=== PATIENT | male | born 1940 | race African-American/Black ===

== ENCOUNTER → 2020-06-27 | Outpatient (CLI) | payer MEDICARE ==
[2020-06-27 20:18] LABS: Non-African American GFR(CKD) 70.8 (60.0-200.0)
== END | disposition home or self-care (01) ==
LOC: LABWHC1 11:29
PROVIDERS: ATTEND Radiology Radiation Oncology
DX: C32.2 Malignant neoplasm of subglottis (principal); Z92.3 Personal history of irradiation
CPT/HCPCS: 36415; 82565; 84520

== ENCOUNTER → 2020-07-01 | Outpatient (CLI) | payer MEDICARE ==
--- NOTE | 2020-07-02 12:32 | CT ---
EXAMINATION TYPE: CT chest wo/w con DATE OF EXAM: 07/01/2020 COMPARISON: 02/29/2020 HISTORY: Malignant neoplasm of subglottis. CT DLP: 997.9 mGycm Automated exposure control for dose reduction was used. CONTRAST: CT scan of the chest is performed without and with IV Contrast, patient injected with 100 mL of Isovu e M300. FINDINGS: LUNGS: Multiple new pulmonary nodules are seen bilaterally totaling 30-40 on each side. The largest n odule within the left lower lobe measures 1.7 cm while the line largest nodule is within the right lo wer lobe measuring 1.4 cm. MEDIASTINUM: There are no greater than 1 cm hilar or mediastinal lymph nodes. No pericardial effusi on is seen. Thoracic aorta is of normal caliber. The heart is not enlarged. UPPER ABDOMEN: Hypoattenuating lesion within the left hepatic lobe adjacent to the falciform ligament measures 2.1 cm and is suspicious for metastatic disease. No additional hepatic lesions are seen wit h certainty although the entire liver is not imaged. Further evaluation is recommended with dedicated CT of the abdomen. Multicystic changes of the kidneys. OTHER: Postoperative changes are noted of the limited visualized portions of the neck IMPRESSION: 1. Multiple bilateral pulmonary nodules is a new finding. 2. Also noted is a suspicious lesion within the left hepatic lobe.
== END | disposition home or self-care (01) ==
LOC: RADCTMAIN 12:00
PROVIDERS: ATTEND Radiology Radiation Oncology
DX: R91.8 Other nonspecific abnormal finding of lung field (principal); C32.2 Malignant neoplasm of subglottis; Z92.3 Personal history of irradiation
CPT/HCPCS: 71270; Q9967

== ENCOUNTER 2020-08-02 08:25 | Day surgery (SDC) | payer MEDICARE ==
[2020-08-01 10:53] VITALS: BMI 26.9
[~2020-08-02 08:25] MED LIST: ACETAMINOPHEN TAB 500 MG TAB PO PRN; HEPARIN SODIUM,PORCINE 5,000 UNIT/ML 1 ML VIAL SQ PRN; Pre Op ABX Message 1 EACH MISC MISCELLANE ONE
--- NOTE | 2020-08-02 08:34 | P.GSHP ---
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 Patient is being seen by Dr. Giang from oncology. We are requested to place a Port-A-Cath for the diagnosis of head and neck cancer. Past Medical History Past Medical History: Cancer, COPD, Diabetes Mellitus, Hyperlipidemia, Hypertension, Prostate Disorder, Thyroid Disorder Additional Past Medical History / Comment(s): gout, cancer of the larynx, recent dx with shanel lung and liver cancer, recent throt infection-tx and resolved per spouse History of Any Multi-Drug Resistant Organisms: None Reported Additional Past Surgical History / Comment(s): complete laryngectomy, PEG tube insertion, Past Anesthesia/Blood Transfusion Reactions: No Reported Reaction Smoking Status: Former smoker - Past Family History Sister(s) Family Medical History: Cancer Additional Family Medical History / Comment(s): lung Brother(s) Family Medical History: Cancer Additional Family Medical History / Comment(s): pancreatic cancer Medications and Allergies Home Medications Medication Instructions Recorded Confirmed Type Allopurinol [Zyloprim] 100 mg PO QAM 08/01/20 08/01/20 History Atorvastatin [Lipitor] 20 mg PO HS 08/01/20 08/01/20 History HYDROcodone/APAP 10-325MG [[place] 1 tab PO Q6HR PRN 08/01/20 08/01/20 History 10-325] Levothyroxine Sodium [Synthroid] 150 mcg PO QAM 08/01/20 08/01/20 History Losartan/Hydrochlorothiazide 1 tab PO QAM 08/01/20 08/01/20 History [Hyzaar 100-25 Tablet] Naproxen 500 mg PO BID 08/01/20 08/01/20 History Tamsulosin [Flomax] 0.4 mg PO HS 08/01/20 08/01/20 History amLODIPine [Norvasc] 5 mg PO 1430 08/01/20 08/01/20 History metFORMIN HCL [Glucophage] 500 mg PO 1430 08/01/20 08/01/20 History Allergies Allergy/AdvReac Type Severity Reaction Status Date / Time No Known Allergies Allergy Verified 08/01/20 10:37 Surgical - Exam Physical exam: General: Well-developed, well-nourished HEENT: Normocephalic, sclerae nonicteric Abdomen: Nontender, nondistended Extremities: No edema Neuro: Alert and oriented Assessment and Plan (1) Head and neck cancer Narrative/Plan: Will proceed with Port-A-Cath at this time. Risks of bleeding, infection, DVT, pneumothorax, catheter malfunction, anesthesia related complications were discussed. The patient understands and wishes to proceed. Current Visit: Yes Status: Acute Code(s): C76.0 - MALIGNANT NEOPLASM OF HEAD, FACE AND NECK SNOMED Code(s): 760245943
[2020-08-02 08:55] VITALS: RESP 16
[2020-08-02] MEDS ORDERED: LACTATED RINGERS 1,000 ML IV ONE (09:00)
[2020-08-02] MEDS ORDERED: LIDOCAINE 1% (10MG/ML) FOR IV START INTRADERMA ONE (09:00)
[2020-08-02] MEDS ORDERED: ONDANSETRON 4 MG/2 ML VIAL ONE (09:01)
[2020-08-02] MEDS ORDERED: DEXAMETHASONE SOD PHOSPHATE 4 MG/ML 1 ML VIAL IV ONE (09:10)
[2020-08-02 09:18] LABS: Glucose,Whole Blood 145 mg/dL (75-99)
[2020-08-02] MEDS ORDERED: MIDAZOLAM 2 MG/2 ML VIAL ONE (09:47)
[2020-08-02] MEDS ORDERED: PHENYLEPHRINE-0.9% NACL SYG 1,000 MCG/10 ML SYRINGE ONE (09:47)
[2020-08-02] MEDS ORDERED: ePHEDrine SULFATE/0.9% NACL/PF 50 MG/5 ML SYRINGE IV ONE (09:47)
[2020-08-02] MEDS ORDERED: fentaNYL (PF) 50 MCG/ML 2 ML AMP ONE (09:47)
[2020-08-02] MEDS ORDERED: PROPOFOL 10 MG/ML 20 ML VIAL IV ONE (09:47)
[2020-08-02] MEDS ORDERED: LIDOCAINE 1% INJ 10MG/ML (20 ML MDV) ONE (09:47)
[2020-08-02] MEDS ORDERED: SODIUM CHLORIDE 0.9% 100 ML with ceFAZolin 2,000 MG IV ONE ×2 (10:21)
[2020-08-02] MEDS ORDERED: LIDOCAINE 1% INJ 10MG/ML (20 ML MDV) SQ ONE ×2 (10:22)
[2020-08-02] MEDS ORDERED: HYDROcodone/APAP 5-325MG 1 EACH TAB PO PRN (10:51)
[2020-08-02] MEDS ORDERED: NALOXONE 0.4 MG/ML 1 ML VIAL IV PRN (10:51)
--- NOTE | 2020-08-02 10:52 | P.OP ---
Date of Procedure: 08/02/20 Procedure(s) Performed: PREOPERATIVE DIAGNOSIS: Head and neck cancer POSTOPERATIVE DIAGNOSIS: Same PROCEDURE: Port-A-Cath placement with fluoroscopic and ultrasound guidance SURGEON: Crow EBL: Minimal ANESTHESIA: Sedation COMPLICATIONS: None OPERATIVE PROCEDURE: Patient was brought and placed on the operative table in the supine position. The patient was placed under general anesthesia that time. The chest and neck were prepped and draped in usual sterile fashion. The ultrasound probe was used to identify the location of the right internal jugular vein. The skin was localized with lidocaine. The Seldinger needle was advanced into the IJ under ultrasound guidance. The wire was advanced through the needle under fluoroscopic guidance into the superior vena cava. A port pocket was created in the right infraclavicular location. The catheter was tunneled from the wire entrance site to the port pocket. The port was then connected to the catheter. The dilator introducer was threaded over the guidewire. The guidewire and dilator were then removed. The catheter was advanced through the introducer and introducer was then removed. The tip was seen to be in the right atrial junction via fluoroscopy. A picture of the radiograph showing the tip at the radial digital junction was taken. Port was flushed with both saline and a Hep-Lock solution. There was good flow both in and out of the port. The port was sutured in underlying tissues using 3-0 silk sutures. The subcutaneous tissues were reapproximated using 3-0 Vicryl sutures and the skin at both locations using 4-0 Monocryl sutures. Skin glue and sterile dressings then applied. DISPOSITION: Stable to recovery room
--- NOTE | 2020-08-02 11:03 | FL ---
Fluoroscopy INDICATION: Pain FINDINGS: Fluoroscopy time: 25 seconds. Images obtained: 1. IMPRESSIONS: 1. Documentation of fluoroscopy.
[2020-08-02 11:09] VITALS: TEMP 97.4
--- NOTE | 2020-08-02 11:34 | XR ---
EXAMINATION TYPE: XR chest 1V confirm line [facility] DATE OF EXAM: 08/02/2020 COMPARISON: 10/17/2013 INDICATION: Line placement TECHNIQUE: Single frontal view of the chest is obtained. FINDINGS: The heart size is normal. The pulmonary vasculature is normal. Tiny nodules at the right lung base measuring 0.6 cm. Additional nodularities left perihilar region. There is placement of a right central venous catheter with the tip lying likely in distal superior ve na cava region. No pneumothorax is evident. Surgical clips are in the left neck. IMPRESSION: 1. Multiple bilateral small nodules 2. No pneumothorax post line placement. Tip in the region of the distal superior vena cava.
[2020-08-02 12:04] VITALS: BP 130/72; PULSE 84
== END 2020-08-02 12:22 | disposition home or self-care (01) ==
LOC: OR 08:25
PROVIDERS: ATTEND Surgery
DX: C32.9 Malignant neoplasm of larynx, unspecified (principal); C34.92 Malignant neoplasm of unspecified part of left bronchus or lung; C34.91 Malignant neoplasm of unspecified part of right bronchus or lung; C22.8 Malignant neoplasm of liver, primary, unspecified as to type; J44.9 Chronic obstructive pulmonary disease, unspecified; E11.9 Type 2 diabetes mellitus without complications; E78.5 Hyperlipidemia, unspecified; I10 Essential (primary) hypertension; N42.9 Disorder of prostate, unspecified; E07.9 Disorder of thyroid, unspecified; M10.9 Gout, unspecified; Z90.02 Acquired absence of larynx; Z93.1 Gastrostomy status; Z93.0 Tracheostomy status; Z87.891 Personal history of nicotine dependence; Z80.1 Family history of malignant neoplasm of trachea, bronchus and lung; Z80.0 Family history of malignant neoplasm of digestive organs; Z79.84 Long term (current) use of oral hypoglycemic drugs; Z79.1 Long term (current) use of non-steroidal anti-inflammatories (NSAID); Z79.890 Hormone replacement therapy; Z79.891 Long term (current) use of opiate analgesic; Z79.899 Other long term (current) drug therapy
CPT/HCPCS: 77001; 36561; 76937; C1788; J2250; J1644; J1100; J2405; J0690; J2001; J3010; J1642; J2370; J2704

== ENCOUNTER → 2020-10-10 | Outpatient (CLI) | payer MEDICARE ==
--- NOTE | 2020-10-10 22:24 | CT ---
EXAMINATION TYPE: CT ChestAbdPelvis w con DATE OF EXAM: 10/10/2020 COMPARISON: Chest CT scan 07/01/2020. Abdomen CT scan 11/23/2014. HISTORY: Observe for mets, hx of head and neck cancer. CT DLP: 1392.4 mGycm Automated exposure control for dose reduction was used. CONTRAST: Performed with IV Contrast, patient injected with 80ml mL of Isovue 370. Images were obtained from the thoracic inlet to the floor the pelvis with IV contrast. There is some bullous pulmonary emphysema. There are multiple surgical clips at the base of the neck. There is fistula tubing between the trachea and the upper thoracic esophagus. There is extensive brittany brianna at the base of the neck. I see no mediastinal adenopathy. Thoracic aorta is intact. There is no aneurysm or dissection. I see no filling defects in the pulmonary arteries. There is no evidence of a pulmonary mass. There is no pleural effusion. There is no pneumothorax. Heart size is normal. There is no pericardial effusion. Liver is intact. The bile ducts are not dilated. Gallbladder is intact. Spleen is intact. Stomach is intact. There is gastrostomy tube noted in good position. There is no evidence of pancreatic mass. Th ere are numerous bilateral large renal cortical cysts that measure up to 8.2 cm. There is no hydronep hrosis. There is no retroperitoneal adenopathy. Abdominal aorta is atheromatous. There are multiple s igmoid diverticula. There is no diverticulitis. Bladder distends smoothly. Prostate measures 5 cm. Th ere is no inguinal hernia. There is no free fluid in the pelvis. There is normal oral contrast opacification of the small bowel. There is no sign of a bowel obstructi on. Appendix is posterior and appears normal. There is no mesenteric edema. There is no ascites or fr ee air. I see no sign of a bowel obstruction. Thoracic and lumbar vertebra have normal alignment. The re is no compression fracture. The sternum is intact. The bony pelvis is intact. Hip joints are intac t. There is vacuum disc at L5-S1. There is no evidence of rib fracture. IMPRESSION: Pulmonary emphysema. Extensive neck surgery. There is tracheostomy fistula tubing noted which is a ch enoch compared to old exam. There is apparent complete clearing of the extensive pulmonary nodules compared to 07/01/2020 that is suggestive of favorable treatment response. Numerous renal cortical cysts. Unchanged. No evidence of metastatic disease in the abdomen pelvis. Colonic diverticulosis without diverticulitis unchanged.
== END | disposition home or self-care (01) ==
LOC: RADCTMAIN 14:41
PROVIDERS: ATTEND Internal Medicine Hematology & Oncology
DX: C76.0 Malignant neoplasm of head, face and neck (principal); J43.9 Emphysema, unspecified; N28.1 Cyst of kidney, acquired; K57.30 Diverticulosis of large intestine without perforation or abscess without bleeding
CPT/HCPCS: 82565; 84520; 71260; 74177; 36415; Q9967

== ENCOUNTER 2020-10-30 10:48 | Emergency (ER) | payer MEDICARE ==
[2020-10-30 10:53] VITALS: PULSE 94; RESP 16; TEMP 98
[2020-10-30 10:59] VITALS: BP 140/75
--- NOTE | 2020-10-30 12:12 | ED ---
General Adult HPI - General Chief complaint: Recheck/Abnormal Lab/Rx Stated complaint: Feeding tube issues Time Seen by Provider: 10/30/20 11:07 Source: patient Mode of arrival: ambulatory Limitations: no limitations - History of Present Illness Initial comments: 80-year-old male presents to the emergency room for a chief complaint of PEG tube malfunction. Patient has had a PEG tube since February because of head and neck cancer. Patient reports that today they were not able to put anything throat. Patient reports that the usually use a syringe without a plunger and allow gravity to pull the Glucerna through however it did not work today.Patient has no other complaints at this time including shortness of breath, chest pain, abdominal pain, nausea or vomiting, headache, or visual changes. - Related Data Home Medications Medication Instructions Recorded Confirmed Allopurinol [Zyloprim] 100 mg PO QAM 08/01/20 08/01/20 Atorvastatin [Lipitor] 20 mg PO HS 08/01/20 08/01/20 HYDROcodone/APAP 10-325MG [[place] 1 tab PO Q6HR PRN 08/01/20 08/01/20 10-325] Levothyroxine Sodium [Synthroid] 150 mcg PO QAM 08/01/20 08/01/20 Losartan/Hydrochlorothiazide 1 tab PO QAM 08/01/20 08/01/20 [Hyzaar 100-25 Tablet] Naproxen 500 mg PO BID 08/01/20 08/01/20 Tamsulosin [Flomax] 0.4 mg PO HS 08/01/20 08/01/20 amLODIPine [Norvasc] 5 mg PO 1430 08/01/20 08/01/20 metFORMIN HCL [Glucophage] 500 mg PO 1430 08/01/20 08/01/20 Allergies Allergy/AdvReac Type Severity Reaction Status Date / Time No Known Allergies Allergy Verified 10/30/20 10:49 Review of Systems ROS Statement: Those systems with pertinent positive or pertinent negative responses have been documented in the HPI. ROS Other: All systems not noted in ROS Statement are negative. Past Medical History Past Medical History: Cancer, COPD, Diabetes Mellitus, Hyperlipidemia, Hypertension, Prostate Disorder, Thyroid Disorder Additional Past Medical History / Comment(s): gout, cancer of the larynx, recent dx with shanel lung and liver cancer, recent throt infection-tx and resolved per spouse History of Any Multi-Drug Resistant Organisms: None Reported Additional Past Surgical History / Comment(s): complete laryngectomy, PEG tube insertion, Past Anesthesia/Blood Transfusion Reactions: No Reported Reaction Past Psychological History: No Psychological Hx Reported Smoking Status: Former smoker Past Alcohol Use History: None Reported Past Drug Use History: None Reported - Past Family History Sister(s) Family Medical History: Cancer Additional Family Medical History / Comment(s): lung Brother(s) Family Medical History: Cancer Additional Family Medical History / Comment(s): pancreatic cancer General Exam Limitations: no limitations General appearance: alert, in no apparent distress Head exam: Present: atraumatic, normocephalic, normal inspection Eye exam: Present: normal appearance ENT exam: Present: normal exam, mucous membranes moist Neck exam: Present: normal inspection, full ROM. Absent: tenderness, meningismus, lymphadenopathy Respiratory exam: Present: normal lung sounds bilaterally. Absent: respiratory distress, wheezes, rales, rhonchi, stridor Cardiovascular Exam: Present: regular rate, normal rhythm, normal heart sounds. Absent: systolic murmur, diastolic murmur, rubs, gallop, clicks GI/Abdominal exam: Present: soft, normal bowel sounds, other (PEG tube in place). Absent: distended, tenderness, guarding, rebound, rigid Neurological exam: Present: alert Course Vital Signs 10/30/20 10:49 Temperature 98.0 F Pulse Rate 94 Respiratory 16 Rate Blood Pressure 140/75 O2 Sat by Pulse 99 Oximetry Medical Decision Making - Medical Decision Making The PEG tube was infused with diet Pepsi and it did flush easily. As tube is now working they prefer discharge rather than replacement. He will follow up with the surgeon. If tube was stops working again I did discuss how they can try to flush this was Pepsi and if it does not work to return to the emergency room and we will try to replace it. Disposition Clinical Impression: PEG tube malfunction Disposition: HOME SELF-CARE Condition: Good Instructions (If sedation given, give patient instructions): How to Use and Care for Your PEG Tube (ED) Additional Instructions: Please follow-up with your surgeon. If PEG tube stops working again and he cannot get anything through, return to the emergency room and we can try to replace it. If patient has any other worsening symptoms return to the emergency room. Otherwise call the surgeon to follow-up. Is patient prescribed a controlled substance at d/c from ED?: No Referrals: Jasmeet Willis MD [Primary Care Provider] - 1-2 days Time of Disposition: 12:11
== END 2020-10-30 12:20 | disposition home or self-care (01) ==
LOC: EC 10:48
DX: K94.23 Gastrostomy malfunction (principal); J44.9 Chronic obstructive pulmonary disease, unspecified; E11.9 Type 2 diabetes mellitus without complications; E78.5 Hyperlipidemia, unspecified; I10 Essential (primary) hypertension; Z87.891 Personal history of nicotine dependence; E07.9 Disorder of thyroid, unspecified; Z79.890 Hormone replacement therapy

== ENCOUNTER → 2021-01-20 | Outpatient (CLI) | payer MEDICARE ==
--- NOTE | 2021-01-20 15:19 | CT ---
EXAMINATION TYPE: CT ChestAbdPelvis w con DATE OF EXAM: 01/20/2021 COMPARISON: 10/10/2020 HISTORY: f/u head/neck ca CT DLP: 1429.3 mGycm CONTRAST: CT scan of the chest, abdomen and pelvis is performed with Oral Contrast and with IV Contrast, patien t injected with 100 mL of Isovue 300. CT Chest: LUNGS: Moderate bullous emphysema noted. The lungs are clear and free of infiltrate or atelectasis. A 4 mm groundglass nodule left mid lung zone image 34 is stable. No new nodules are visible. No pleura l effusion or CT evidence of interstitial lung disease. MEDIASTINUM: Fistula tubing again noted between the trachea and upper thoracic esophagus. Since a po stoperative change at the base of the neck is redemonstrated. Thoracic aorta is of normal caliber. T he heart is not enlarged. No evidence for mediastinal mass or adenopathy. HILAR STRUCTURES: No evidence for mass. No hilar adenopathy is appreciated. OTHER: No significant abnormality. CONTRAST CT ABDOMEN AND PELVIS FINDINGS: LIVER/GB: No calcified gallstones. No space occupying hepatic lesion. Biliary tree is of normal ca liber. PANCREAS: No inflammation. No distinct mass. SPLEEN: No splenic enlargement. No lesion seen. ADRENALS: No nodule. No thickening. KIDNEYS/BLADDER: No hydronephrosis. No nephrolithiasis. Redemonstrated are numerous bilateral renal cortical cysts. BOWEL: Normal appendix. Normal bowel caliber. No inflammation. GENITAL ORGANS: No gross abnormality. LYMPH NODES: No greater than 1cm abdominal or pelvic lymph nodes are appreciated. AORTA: No significant abnormality. OSSEOUS STRUCTURES: No significant abnormality is seen. OTHER: No significant additional abnormality is seen. IMPRESSION: 1. Stable groundglass nodular density left midlung zone. 2. Stable pulmonary fibrosis. 3. Fistula device between the trachea and the upper thoracic esophagus.
== END | disposition home or self-care (01) ==
LOC: RADCTMAIN 12:30
PROVIDERS: ATTEND Internal Medicine Hematology & Oncology
DX: Z03.89 Encounter for observation for other suspected diseases and conditions ruled out (principal); C76.0 Malignant neoplasm of head, face and neck; J84.10 Pulmonary fibrosis, unspecified
CPT/HCPCS: 82565; 84520; 71260; 74177; 36415; Q9967

== ENCOUNTER → 2021-05-13 | Outpatient (CLI) | payer MEDICARE ==
--- NOTE | 2021-05-14 16:57 | CT ---
EXAMINATION TYPE: CT ChestAbdPelvis w con DATE OF EXAM: 05/13/2021 INDICATION: Head and neck cancer COMPARISON: 01/20/2021 CT DLP: 2164 mGycm CONTRAST: Performed with Oral Contrast and with IV Contrast, patient injected with 100 ml mL of Isovue 300. TECHNIQUE: Axial images at 5 mm thick sections. Reconstructed images in the coronal plane. Delayed images through the kidneys. FINDINGS: CT CHEST: Portion of the thyroid visualized is normal. No suspicious lung nodules or focal infiltrates are present. No enlarged mediastinal or hilar adenopathy is evident. The ascending aorta diameter at the level of the main pulmonary artery is 3.5 cm. The main pulmonary artery diameter at the bifurcation is 2.5 cm. Coronary artery calcification is present. Small hiatal hernia is present. CT ABDOMEN: Liver: Liver density is stable over the interval. Small hypodensities in the medial right lobe. Spleen: Normal Pancreas: Normal Adrenal glands: The adrenal glands are normal. Gallbladder: Normal Kidneys: No masses are evident. No hydronephrosis is present. Multiple large cysts are present. The largest on the right which may contain some wall calcification measures 6.7 x 8.5. Largest on the ri ght measures 4.6 cm in diameter. Multiple additional smaller renal cysts are present. Delayed images were obtained through the kidneys, which remain unremarkable. Aorta: Vascular calcification is within the aorta. Mild fusiform prominence of the distal abdominal aorta with an AP diameter of 2.7 cm. Inferior vena cava: Normal. CT PELVIS: Loops of bowel within the abdomen and pelvis are normal. Fecal debris is within the colon. There a re loops of bowel which are incompletely distended or lack oral contrast limiting their evaluation. Appendix: Not identified. No suspicious inflammatory changes are evident. Urinary bladder: Normal. Genitourinary structures: Prostate is very prominent. Osseous structures: No suspicious lytic or sclerotic lesions. IMPRESSIONS: 1. No suspicious changes to suggest metastatic disease. 2. Polycystic kidney disease. 3. Small hiatal hernia.
== END | disposition home or self-care (01) ==
LOC: RADPROMAIN 10:43
PROVIDERS: ATTEND Internal Medicine Hematology & Oncology
DX: C76.0 Malignant neoplasm of head, face and neck (principal); Q61.3 Polycystic kidney, unspecified; K44.9 Diaphragmatic hernia without obstruction or gangrene
CPT/HCPCS: 82565; 84520; 71260; 74177; J1642; Q9967

== ENCOUNTER → 2021-08-01 | Outpatient (CLI) | payer MEDICARE ==
--- NOTE | 2021-08-01 15:19 | PE ---
Nuclear medicine PET/CT HISTORY: Head and neck cancer, subsequent Patient received 7.9 mCi F-18 FDG intravenously and delayed scanning was performed from the skull bas e to the mid thighs. A localization and attenuation correction CT scan was performed. Small field-of- view imaging was performed over the head and neck. Correlation to prior CT chest abdomen pelvis 05/13/2021, prior nuclear medicine PET/CT 05/06/2020 Head and neck: The previous areas of abnormal uptake are no longer seen, postop changes are present. Some muscular uptake is present which is likely physiologic. No supraclavicular or cervical adenopath y. Some mild inflammatory change present in the right maxillary sinus. Patient is post laryngectomy. There is a port coursing via a right jugular approach. Uptake along the region of the pharyngeal muco uri space or tonsillar pillar region on the left does show uptake, SUV is 4.9, increased on the left as compared to the right, questionable clinical significance. CHEST: There is no mediastinal, axillary, or hilar adenopathy. Coronary artery calcifications are pre sent. There is no pleural or pericardial effusion. No evident lung mass. Emphysematous changes are pr esent. No suspicious uptake. Tracheostomy changes present. ABDOMEN: There is no evident liver mass, no retroperitoneal adenopathy or adrenal mass. Extensive cys tic change is present within the kidneys. There is no ascites. No suspicious uptake. Osseous structures show no suspicious uptake. Uptake within the right shoulder may be due to degenera tive change. Suspect postop changes are present in the proximal left lower extremity. Degenerative di sc change and facet arthropathy change noted in the lower lumbar spine. IMPRESSION: Uptake within the oropharynx as described is indeterminate. Postop changes.
== END | disposition home or self-care (01) ==
LOC: RADPETMAIN 07:17
PROVIDERS: ATTEND Internal Medicine Hematology & Oncology
DX: C76.0 Malignant neoplasm of head, face and neck (principal)
CPT/HCPCS: 78815; A9552

== ENCOUNTER → 2021-11-04 | Outpatient (CLI) | payer MEDICARE ==
--- NOTE | 2021-11-04 14:05 | CT ---
EXAMINATION TYPE: CT ChestAbdPelvis w con DATE OF EXAM: 11/04/2021 COMPARISON: Most recent PET CT August 01, 2021 and older studies HISTORY: f/u neck cancer CT DLP: 1670 mGycm. Automated Exposure Control for Dose Reduction was Utilized. CONTRAST: CT scan of the thorax, abdomen and pelvis is performed with oral and with IV Contrast, patient inject ed with 80cc mL of Isovue 300. FINDINGS: LUNGS: Mild/moderate underlying emphysematous change with mild linear scarring throughout the lower l ungs. No suspicious greater than 5 mm nodules or masses. No pleural effusion or pneumothorax is seen bilaterally. MEDIASTINUM: There are no greater than 1 cm hilar or mediastinal lymph nodes. No cardiomegaly or pe ricardial effusion is seen. Coronary artery calcification is redemonstrated. OTHER: Treatment change submandibular and supraclavicular region with surgical clips is partially hayden ged. There is right internal jugular Mediport catheter redemonstrated.. LIVER/GB: No significant abnormality is appreciated. PANCREAS: No significant abnormality is seen. SPLEEN: No significant abnormality is seen. ADRENALS: No significant abnormality is seen. KIDNEYS: Multiple thin-walled cysts of varying size and shape scattered throughout both kidneys redem onstrated. Symmetric cortical medullary uptake and excretion without hydronephrosis seen bilaterally. BOWEL: Oral contrast does not reach colonic level making evaluation of distal bowel slightly suboptim al. No suspicious small or large bowel dilatation. Diverticula in the left and sigmoid colon without CT evidence for acute diverticulitis. GENITAL ORGANS: Enlarged heterogeneous prostate consistent with BPH. LYMPH NODES: No greater than 1cm abdominal or pelvic lymph nodes are appreciated. OSSEOUS STRUCTURES: Moderate disc space narrowing and vacuum disc phenomenon lumbosacral junction. St able nonspecific lucent lesion left T5 level axial image 20. This was ametabolic on original PET/CT. Facet arthropathy lower lumbar levels. OTHER: [id number] peripheral plaque of the aorta extends into branch vessels. IMPRESSION: No suspicious new mass or adenopathy to suggest active neoplastic recurrence.
== END | disposition home or self-care (01) ==
LOC: RADCTMAIN 10:53
PROVIDERS: ATTEND Internal Medicine Hematology & Oncology
DX: Z03.89 Encounter for observation for other suspected diseases and conditions ruled out (principal); C76.0 Malignant neoplasm of head, face and neck
CPT/HCPCS: 82565; 84520; 71260; 74177; 36415; Q9967

== ENCOUNTER 2021-12-10 08:46 | Emergency (ER) | payer MEDICARE ==
[2021-12-10] MEDS ORDERED: SODIUM CHLORIDE 0.9% 1,000 ML IV STA (08:51)
[2021-12-10 09:01] VITALS: RESP 18; TEMP 98.4
[2021-12-10 09:03] LABS: Glucose,Whole Blood 121 mg/dL (70-110)
--- NOTE | 2021-12-10 09:30 | XR ---
EXAMINATION TYPE: XR chest 2V DATE OF EXAM: 12/10/2021 COMPARISON: Chest x-ray August 02, 2020. Most recent CT November 04, 2021 HISTORY: Syncope and weakness. History of neck cancer. TECHNIQUE: Frontal and lateral views of the chest are obtained. FINDINGS: There is background chronic emphysematous change without suspicious focal air space opacit y, pleural effusion, or pneumothorax seen. Stable right internal jugular Mediport catheter. Surgical clips bilateral neck redemonstrated. The cardiac silhouette size is stable and within normal limits. The osseous structures are intact. IMPRESSION: Chronic emphysematous change without acute pulmonary process.
[2021-12-10 09:31] LABS: Basophils % (A) 1 %; Eosinophils # (A) 0.4 k/uL (0-0.7); Eosinophils % (A) 6 %; HCT 37.7 % (39.0-53.0); HGB 12.8 gm/dL (13.0-17.5); Lymphocytes # (A) 1.6 k/uL (1.0-4.8); Lymphocytes % (A) 21 %; MCH 30.6 pg (25.0-35.0); MCV 90.1 fL (80.0-100.0); Mean Platelet Volume 7.2; Monocytes # (A) 0.8 k/uL (0-1.0); Monocytes % (A) 10 %; Neutrophils # (A) 4.5 k/uL (1.3-7.7); Neutrophils % (A) 59 %; Platelet Count 203 k/uL (150-450); RBC 4.18 m/uL (4.30-5.90); RDW 12.8 % (11.5-15.5); WBC 7.5 k/uL (3.8-10.6)
--- NOTE | 2021-12-10 09:40 | CT ---
EXAMINATION TYPE: CT brain wo con CT DLP: 1217.4 mGycm, Automated exposure control for dose reduction was used. DATE OF EXAM: 12/10/2021 9:24 AM COMPARISON: 08/01/2021 PET. CLINICAL INDICATION:Male, 81 years old with history of syncope. TECHNIQUE: Brain: Multiple axial CT images of the brain were obtained without IV contrast. FINDINGS: Brain: Extra-axial spaces: No abnormal extra-axial fluid collections. Ventricular system: Dilatation in proportion to cerebral atrophy. Cerebral parenchyma: Cerebral atrophy. No acute intraparenchymal hemorrhage or mass effect. The williamson -white junction is well differentiated. Scattered hypoattenuating areas are seen within the white mat ter. Cerebellum: Unremarkable. Mass effect: No evidence of midline shift. Intracranial vasculature: Atherosclerotic calcifications of the intracranial vessels. Soft tissues: Normal. Calvarium/osseous structures: No depressed skull fracture. Paranasal sinuses and mastoid air cells: Mild scattered paranasal sinus disease. Visualized orbits: Left aphakia IMPRESSION: 1. No acute intracranial process. 2. Nonspecific white matter changes, likely secondary to chronic small vessel ischemic disease.
[2021-12-10 09:42] LABS: INR 1.1 (<1.2); Partial Thromboplastin Time 24.2 sec (22.0-30.0); Prothrombin Time 11.3 sec (9.0-12.0)
[2021-12-10 10:00] LABS: Albumin 3.8 g/dL (3.5-5.0); Calcium 8.2 mg/dL (8.4-10.2); Magnesium 1.4 mg/dL (1.6-2.3); Potassium 3.2 mmol/L (3.5-5.1); Total Bilirubin 0.6 mg/dL (0.2-1.3); Total Protein 7.6 g/dL (6.3-8.2)
[2021-12-10] MEDS ORDERED: MAGNESIUM SULFATE-D5W PMX 1 GM in DEXTROSE/WATER 1 100ML.BAG IVPB ONE (10:21)
[2021-12-10] MEDS ORDERED: POTASSIUM CHLORIDE ER 20 MEQ TAB.ER PO STA (10:21)
--- NOTE | 2021-12-10 11:31 | ED ---
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 Patient states that he was receiving blood work at his doctor's office, and his is notified that he became somewhat unresponsive. Patient was staring off into the corner. States he felt extremely weak care people talking to him. Please see may have passed out for a second. Denies falling or hitting his head or injuring himself. Denies any blood thinners. Denies any chest pain, shortness breath, abdominal pain, nausea, vomiting. His no urinary complaints. States that over the last day he has felt generally weak with no focal weakness. No other symptoms. No other acute complaints at this time. He was brought here for further evaluation. They did not actually poke him attempt to draw blood. He was fasting to obtain a fasting glucose level and had not eaten since yesterday.Currently has no acute complaints. - Related Data Home Medications Medication Instructions Recorded Confirmed Atorvastatin [Lipitor] 20 mg PO HS 08/01/20 12/10/21 HYDROcodone/APAP 10-325MG [[place] 1 tab PO Q6HR 08/01/20 12/10/21 10-325] Levothyroxine Sodium [Synthroid] 150 mcg PO QAM 08/01/20 12/10/21 Losartan/Hydrochlorothiazide 1 tab PO QAM 08/01/20 12/10/21 [Hyzaar 100-25 Tablet] Naproxen 500 mg PO BID 08/01/20 12/10/21 Tamsulosin [Flomax] 0.4 mg PO HS 08/01/20 12/10/21 allopurinoL [Zyloprim] 100 mg PO QAM 08/01/20 12/10/21 amLODIPine [Norvasc] 5 mg PO DAILY 08/01/20 12/10/21 metFORMIN HCL [Glucophage] 500 mg PO 1430 08/01/20 12/10/21 Calcium Carbonate [Tums] 500 mg PO DAILY 12/10/21 12/10/21 Clotrimazole Cream [Lotrimin Cream] 1 applic TOPICAL BID 12/10/21 12/10/21 Glucerna Shake 1.5 - 5 can PO DAILY 12/10/21 12/10/21 Latanoprost Ophth [Xalatan 0.005%] 1 drop BOTH EYES HS 12/10/21 12/10/21 Loratadine [Claritin] 10 mg PO DAILY 12/10/21 12/10/21 Omeprazole [PriLOSEC] 20 mg PO DAILY 12/10/21 12/10/21 Prostate Pq 1 tab PO DAILY 12/10/21 12/10/21 Allergies Allergy/AdvReac Type Severity Reaction Status Date / Time No Known Allergies Allergy Verified 10/30/20 10:49 Review of Systems ROS Statement: Those systems with pertinent positive or pertinent negative responses have been documented in the HPI. Review of Systems: CONST: Denies fever EYES: Denies blurry vision ENT: Denies nasal congestion C/V: Denies Chest pain RESP: Denies shortness of breath GI: Denies abdominal pain : Denies dysuria SKIN: Denies rash. MSK: Denies joint pain. NEURO: Denies headache ROS Other: All systems not noted in ROS Statement are negative. Past Medical History Past Medical History: Cancer, COPD, Diabetes Mellitus, Hyperlipidemia, Hypertension, Prostate Disorder, Thyroid Disorder Additional Past Medical History / Comment(s): gout, cancer of the larynx, recent dx with shanel lung and liver cancer, recent throt infection-tx and resolved per spouse History of Any Multi-Drug Resistant Organisms: None Reported Additional Past Surgical History / Comment(s): complete laryngectomy, PEG tube insertion, Trach, port Past Anesthesia/Blood Transfusion Reactions: No Reported Reaction Past Psychological History: No Psychological Hx Reported Smoking Status: Former smoker Past Alcohol Use History: None Reported Past Drug Use History: None Reported - Past Family History Sister(s) Family Medical History: Cancer Additional Family Medical History / Comment(s): lung Brother(s) Family Medical History: Cancer Additional Family Medical History / Comment(s): pancreatic cancer General Exam - General Exam Comments Initial Comments: General: Appears in no acute distress. HEAD: Normal with no signs of head trauma. EYES: PERRLA, EOMI, conjunctiva normal, no discharge. ENT: Hearing grossly intact. She States that is within normal limits. No signs of infection. RESPIRATORY: Clear breath sounds bilaterally. No wheezes, rales, or rhonchi. C/V: Regular rate and rhythm. S1 and S2 auscultated, no edema, peripheral pulses 2+ and intact throughout ABD: Abd is soft, nontender, nondistended EXT: Normal range of motion, no obvious deformity SKIN: No rashes or lesions observed on exposed skin. NEURO: Alert and oriented x 4. Cranial nerves II-XII intact. No focal sensory or strength deficits. GCS of 15. NIH of 0. Cerebellar function is intact as evident by normal finger to nose testing. Patient can ambulate. Limitations: physical limitation Course Vital Signs 12/10/21 12/10/21 12/10/21 08:47 11:32 12:16 Temperature 98.4 F 98.4 F Pulse Rate 65 76 61 Respiratory 18 18 18 Rate Blood Pressure 101/54 128/83 130/77 O2 Sat by Pulse 92 L 93 L 93 L Oximetry Medical Decision Making - Medical Decision Making Based on the patient's presentation and physical exam, I'm concerned for his syncopal episode versus possible dehydration or hypoglycemia for the patient. Cannot rule out other etiology. Patient did receive CT imaging recently which revealed no metastasis below the neck but they did not obtain CT brain. I did recommend we obtain CT brain as well as syncopal laboratory studies and uri nalysis. He was in agreement this plan. He'll receive a fluid bolus. He'll be monitored on continuous cardiac monitoring. Vital signs are within normal limits. EKG showed no signs of acute ischemia. Chest x-ray revealed no acute cardiopulmonary process. CT brain revealed no acute intracranial process. Laboratory studies are remarkable for a normocytic anemia with a hemoglobin of 12.8. Patient is slightly hypokalemic at 3.2. Patient is slightly hypomagnesemic 1.4. Troponin is undetectable. Patient has an elevated BUN and creatinine of 25 and 1.34, which does appear to be within the patient's normal baseline state does have mild CK D. I discussed results with the patient. I did offer admission for further monitoring but he is adamant he would like to be discharged home. Does have follow-up with Dr. Willis the next few days. I believe this is reasonable. We will replenish his magnesium and potassium. He received a 1 L fluid bolus. He has no symptoms at this time. I did instruct him to return if there are any concerns. We'll continue to attempt to obtain a urine sample while he receives his magnesium infusion. Patient was unable to urinate. No history of hypertension. Would Like to go home. Patient will be discharged home at this time. I instructed the patient to follow up with their PCP in the next 1-3 days. I explained that the patient should return to the emergency department if they experience any worsening symptoms. Strict return precautions were discussed with the patient. The patient expressed understanding of these instructions. I answered all questions that the patient had. The patient was discharged home in good condition with their prescriptions and follow up information. - Lab Data Result diagrams: 12/10/21 09:10 12/10/21 09:10 Lab Results 12/10/21 12/10/21 12/10/21 Range/Units 09:01 09:10 09:10 WBC 7.5 (3.8-10.6) k/uL RBC 4.18 L (4.30-5.90) m/uL Hgb 12.8 L (13.0-17.5) gm/dL Hct 37.7 L (39.0-53.0) % MCV 90.1 (80.0-100.0) fL MCH 30.6 (25.0-35.0) pg MCHC 34.0 (31.0-37.0) g/dL RDW 12.8 (11.5-15.5) % Plt Count 203 (150-450) k/uL MPV 7.2 Neutrophils % 59 % Lymphocytes % 21 % Monocytes % 10 % Eosinophils % 6 % Basophils % 1 % Neutrophils # 4.5 (1.3-7.7) k/uL Lymphocytes # 1.6 (1.0-4.8) k/uL Monocytes # 0.8 (0-1.0) k/uL Eosinophils # 0.4 (0-0.7) k/uL Basophils # 0.0 (0-0.2) k/uL PT 11.3 (9.0-12.0) sec INR 1.1 (<1.2) APTT 24.2 (22.0-30.0) sec Sodium (137-145) mmol/L Potassium (3.5-5.1) mmol/L Chloride (98-107) mmol/L Carbon Dioxide (22-30) mmol/L Anion Gap mmol/L BUN (9-20) mg/dL Creatinine (0.66-1.25) mg/dL Est GFR (CKD-EPI)AfAm (>60 ml/min/1.73 sqM) Est GFR (CKD-EPI)NonAf (>60 ml/min/1.73 sqM) Glucose (74-99) mg/dL POC Glucose (mg/dL) 121 H (70-110) mg/dL POC Glu Design Painter ID Rhtet Roblero Calcium (8.4-10.2) mg/dL Magnesium (1.6-2.3) mg/dL Total Bilirubin (0.2-1.3) mg/dL AST (17-59) U/L ALT (4-49) U/L Alkaline Phosphatase (38-126) U/L Troponin I (0.000-0.034) ng/mL Total Protein (6.3-8.2) g/dL Albumin (3.5-5.0) g/dL 12/10/21 12/10/21 Range/Units 09:10 09:10 WBC (3.8-10.6) k/uL RBC (4.30-5.90) m/uL Hgb (13.0-17.5) gm/dL Hct (39.0-53.0) % MCV (80.0-100.0) fL MCH (25.0-35.0) pg MCHC (31.0-37.0) g/dL RDW (11.5-15.5) % Plt Count (150-450) k/uL MPV Neutrophils % % Lymphocytes % % Monocytes % % Eosinophils % % Basophils % % Neutrophils # (1.3-7.7) k/uL Lymphocytes # (1.0-4.8) k/uL Monocytes # (0-1.0) k/uL Eosinophils # (0-0.7) k/uL Basophils # (0-0.2) k/uL PT (9.0-12.0) sec INR (<1.2) APTT (22.0-30.0) sec Sodium 139 (137-145) mmol/L Potassium 3.2 L (3.5-5.1) mmol/L Chloride 101 (98-107) mmol/L Carbon Dioxide 26 (22-30) mmol/L Anion Gap 12 mmol/L BUN 25 H (9-20) mg/dL Creatinine 1.34 H (0.66-1.25) mg/dL Est GFR (CKD-EPI)AfAm 57 (>60 ml/min/1.73 sqM) Est GFR (CKD-EPI)NonAf 50 (>60 ml/min/1.73 sqM) Glucose 128 H (74-99) mg/dL POC Glucose (mg/dL) (70-110) mg/dL POC Glu Design Painter ID Calcium 8.2 L (8.4-10.2) mg/dL Magnesium 1.4 L (1.6-2.3) mg/dL Total Bilirubin 0.6 (0.2-1.3) mg/dL AST 20 (17-59) U/L ALT 13 (4-49) U/L Alkaline Phosphatase 100 (38-126) U/L Troponin I <0.012 (0.000-0.034) ng/mL Total Protein 7.6 (6.3-8.2) g/dL Albumin 3.8 (3.5-5.0) g/dL - EKG Data -: EKG Interpreted by Me EKG Comments: 12-lead Electrocardiogram Interpretation Note EKG was reviewed and interpreted by myself. 12-lead ECG performed at 0854 is interpreted by me as revealing normal sinus rhythm at a rate of 72 beats per minute. [place] is normal. SC interval is 162 ms, QRS duration is 81 ms, QTc is 437 ms.. There were no ST or T wave abnormalities to suggest myocardial ischemia or injury. R wave progression across the precordium was satisfactory. By my interpretation this EKG is non-diagnostic for acute ischemia. Disposition Clinical Impression: Syncope, Hypomagnesemia, Hypokalemia Disposition: HOME SELF-CARE Condition: Good Instructions (If sedation given, give patient instructions): Syncope (ED) Is patient prescribed a controlled substance at d/c from ED?: No Referrals: Jasmeet Willis MD [Primary Care Provider] - 1-2 days Time of Disposition: 12:00
[2021-12-10 12:19] VITALS: BP 130/77; PULSE 61
== END 2021-12-10 12:16 | disposition home or self-care (01) ==
LOC: EC 08:46
DX: R55 Syncope and collapse (principal); E87.6 Hypokalemia; E83.42 Hypomagnesemia; E11.9 Type 2 diabetes mellitus without complications; I10 Essential (primary) hypertension; J44.9 Chronic obstructive pulmonary disease, unspecified; E78.5 Hyperlipidemia, unspecified; M10.9 Gout, unspecified; E07.9 Disorder of thyroid, unspecified; Z87.891 Personal history of nicotine dependence; Z79.84 Long term (current) use of oral hypoglycemic drugs; Z79.890 Hormone replacement therapy; Z79.899 Other long term (current) drug therapy
CPT/HCPCS: 36415; 93005; 80053; 83735; 84484; 85025; 85610; 85730; 71046; 70450; 99285; 96365; 96361; J3475

== ENCOUNTER → 2022-01-20 | Outpatient (CLI) | payer MEDICARE ==
--- NOTE | 2022-01-20 14:03 | CT ---
EXAMINATION TYPE: CT neck chest w/wo con CT DLP: 2200.9 mGycm, Automated exposure control for dose reduction was used. DATE OF EXAM: 01/20/2022 1:14 PM COMPARISON: PET CT 08/01/2021, CT chest and pelvis 11/04/2021 CLINICAL INDICATION:Male, 81 years old with history of C76.0 MALIGNANT NEOPLASM OF HEAD, FACE AND NEC K;, MALIGNANT NEOPLASM OF HEAD, FACE AND NECK TECHNIQUE: Multiple axial images were obtained through the chest. Sagittal and coronal reformats were created for review. Contrast used:100 ML mL of Isovue 300 with IV Contrast, none. Oral contrast used: none. FINDINGS: LUNGS/ PLEURA: No evidence of focal consolidation, pneumothorax or pleural effusion. Moderate centril obular emphysema changes are seen throughout the upper lungs. AIRWAY: Tracheostomy cannula terminates over the tracheostomy hole. There is secretion seen within th e trachea. 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 HEART: Heart is mildly enlarged for size. There is mild to moderate atherosclerosis of the arterial v asculature. MEDIASTINUM: No gross evidence of adenopathy. VASCULATURE: No aortic aneurysm. Right chest wall [id number] distal tip terminating in the field- of-view. MUSCULOSKELETAL: No acute osseous abnormalities, multilevel disc degeneration changes are seen throug hout the spine. SOFT TISSUES/LYMPH NODES: Multiple surgical clips are seen in the lower neck. No evidence for greater than 1 cm in short axis lymph nodes. NECK: There is postsurgical changes to the neck with absent larynx. The oropharynx and hypopharynx ap pear symmetrical. There is no evidence for greater than 1 cm lymph nodes. There is patent atheroscler otic carotid bifurcations. UPPER ABDOMEN: Bilateral renal cysts are seen throughout the kidneys at least one on the left demonst rates thin peripheral calcification. Left adrenal nodularity is unchanged from prior's. IMPRESSION: Postsurgical changes with without convincing evidence for recurrence.
== END | disposition home or self-care (01) ==
LOC: RADCTMAIN 11:41
PROVIDERS: ATTEND Internal Medicine Hematology & Oncology
DX: Z03.89 Encounter for observation for other suspected diseases and conditions ruled out (principal); C76.0 Malignant neoplasm of head, face and neck
CPT/HCPCS: 82565; 84520; 70492; 71270; 36415; Q9967

== ENCOUNTER → 2022-06-12 | Outpatient (CLI) | payer MEDICARE ==
--- NOTE | 2022-06-14 08:16 | PE ---
EXAMINATION TYPE: PET CT fusion skull to thigh DATE OF EXAM: 06/12/2022 CLINICAL INDICATION:Male, 82 years old with history of C76.0 Head/Neck CA; TECHNIQUE: Following the intravenous administration of 9.76 mCi of F-18 FDG, whole body images are performed from the skull base to the midthigh. Images are reviewed on the computer in the coronal, a xial, and sagittal planes. Reconstructed rotating images are created on independent workstation and reviewed on the computer. A non-contrast CT is performed in conjunction with the PET scan. Glucose level 108 mg/dL COMPARISON: CT 01/20/2022, PET/CT 08/01/2021, FINDINGS: Mediastinal SUV mean is 1.8. Hepatic parenchyma SUV mean is 2.3. SKULL BASE AND NECK: There is postsurgical changes to the neck with oropharyngeal uptake which is mo re prominent at the lingual tonsils bilaterally max SUV 4.9, previously 3.5. No additional areas of a bnormal FDG activity. CHEST, MEDIASTINUM, AND HILAR REGION: No suspicious radiotracer activity. ABDOMEN AND PELVIS: No suspicious radiotracer activity. OSSEOUS STRUCTURES: No suspicious radiotracer activity. OTHER CT: Surgical clips are seen scattered throughout the neck bilaterally. Right chest [facility] t with distal tip terminating in the superior vena cava. Atherosclerosis of the coronary arteries and aorta valve calcifications are present. Heart is mildly enlarged. Mild emphysema changes are seen th roughout the lungs. Bilateral renal cysts are present. Some of the renal cysts most particularly the largest on the left has peripheral thin calcification. Atherosclerosis of the abdominal aorta. Scatte red clonic diverticula present. Mild ectasia of the infrarenal abdominal aorta measuring up to 2.7 cm . Prostatomegaly. IMPRESSION: Mildly increased oropharynx FDG activity most pronounced in the lingual tonsils.. Findings remain ind eterminate. The infectious/inflammatory/post treatment. Consider visualization of the lingual tonsils .
== END | disposition home or self-care (01) ==
LOC: RADPETMAIN 09:48
PROVIDERS: ATTEND Internal Medicine Hematology & Oncology
DX: C76.0 Malignant neoplasm of head, face and neck (principal); J39.2 Other diseases of pharynx
CPT/HCPCS: 78815; A9552

== ENCOUNTER → 2022-09-10 | Outpatient (CLI) | payer MEDICARE | END | disposition home or self-care (01) | LOC: LABWHC1 10:29 | PROVIDERS: ATTEND Internal Medicine Critical Care Medicine | DX: J42 Unspecified chronic bronchitis (principal) | CPT/HCPCS: 87070; 87205 ==

== ENCOUNTER → 2023-04-22 | Outpatient (CLI) | payer MEDICARE ==
--- NOTE | 2023-04-25 13:07 | PE ---
EXAMINATION TYPE: PET CT fusion skull to thigh DATE OF EXAM: 04/22/2023 COMPARISON: CT NECK 01/20/2022 Prior PET/CT: 10/09/2022 HISTORY: Head and neck cancer TECHNIQUE: Following the intravenous administration of 11.1 mCi of F-18 FDG, whole body images are p erformed from the skull base to the midthigh. Images are reviewed on the computer in the coronal, ax ial, and sagittal planes. Reconstructed rotating images are created on independent workstation and r eviewed on the computer. A localization and attenuation correction CT is performed in conjunction w ith the PET scan. DLP: 72.43 mGycm SCAN: Subsequent Blood glucose: 98 mg/dL Average Mediastinum SUV: 3.73 Average Liver SUV: 2.12 FINDINGS: HEAD and NECK: Dedicated images were obtained through the head and neck. Some mild uptake may be with in the left tonsillar pillar, image 48, SUV 6.06. Uptake within a posterior right triangle lymph node , image 65, SUV 3.26 is present. NECK: There is a small focal area of uptake within the right posterior triangle, image 31, SUV 2.37. Small focus of uptake may be within the posterior left neck, image 19, SUV 2.05. Small focal area of uptake is within the submental region, image 26, SUV 2.48 THORAX: There is some focal uptake within the proximal esophagus at the thoracic inlet, example image 53, SUV 4.83. Some normal uptake appears to be at the superior gastroesophageal junction. ABDOMEN: No abnormal uptake PELVIS: There is some focal uptake within the anterior right pelvis. This is felt to most likely be r elated to some uptake within the urinary bladder, image 222, SUV 35. Urinary bladder however is poorl y visualized. What may be a larger portion of the urinary bladder is more posterior and superior at t he level of the femoral heads. This appears to correlate with what appears to be the urinary bladder on the localization CT. Prostate appears prominent. There is small focal area of uptake within a small left inguinal lymph node, image 245, SUV 2.67. OSSEOUS STRUCTURES: There is a focus of uptake within the C6-7 right junction. This could be related to degenerative uncovertebral joint changes. Endplate metastasis is not excluded. LOCALIZATION CT: Large left renal cysts are present. Additional smaller right renal cysts are present . Coronary artery calcification is present. COMPARISON: In retrospect, some uptake within the right posterior triangle lymph node may have been p resent previously with intermediate uptake, SUV 1.78. Uptake within the proximal esophagus was presen t previously. Uptake in the right C6-7 level may be a change. IMPRESSION: 1. Nonspecific uptake which appears close to the background level right posterior triangle lymph node . 2. Some persistent mild focal uptake is within the proximal esophagus. Consider EGD. 3. Uptake within the right C6-7 region can be related to degenerative changes. 4. Small focal uptake within the anterior pelvis felt to be related to urinary bladder incomplete dis tention. 5. No convincing evidence of new metastatic lesions. Subtle changes can be related to differences in technique. However, continued close monitoring is recommended.
== END | disposition home or self-care (01) ==
LOC: RADPETMAIN 11:37
PROVIDERS: ATTEND Internal Medicine Hematology & Oncology
DX: C76.0 Malignant neoplasm of head, face and neck (principal)
CPT/HCPCS: 78815; A9552

== ENCOUNTER → 2023-11-18 | Outpatient (CLI) | payer MEDICARE ==
--- NOTE | 2023-11-22 11:42 | PE ---
EXAMINATION TYPE: PET CT fusion skull to thigh DATE OF EXAM: 11/18/2023 COMPARISON: No recent pertinent CT Prior PET/CT: 04/22/2023 HISTORY: Head and neck cancer TECHNIQUE: Following the intravenous administration of 11.66 mCi of F-18 FDG, whole body images are performed from the skull base to the midthigh. Images are reviewed on the computer in the coronal, a xial, and sagittal planes. Reconstructed rotating images are created on independent workstation and reviewed on the computer. A localization and attenuation correction CT is performed in conjunction with the PET scan. DLP: 949.46 mGycm SCAN: Subsequent Blood glucose: 76 mg/dL Average Mediastinum SUV: 2.27 Average Liver SUV: 2.75 FINDINGS: NECK: There is a small amount of radiotracer within a posterior triangle right neck node with an SUV of 4.04. Previous SUV 2.75. THORAX: No abnormal uptake. ABDOMEN: No abnormal uptake PELVIS: There are couple small lymph nodes in the left inguinal region. These has an SUV of 4, image 251 and SUV 3.96, image 252. OSSEOUS STRUCTURES: No abnormal uptake LOCALIZATION CT: Renal cysts are present bilaterally. COMPARISON: Uptake within 2 adjacent left inguinal lymph nodes and within the posterior triangle righ t neck have increased SUV over the interval. Previous uptake within the lateral left chest not evide nt on the current study. IMPRESSION: 1. No new focal areas of uptake to suggest new metastatic disease. 2. Mild uptake within 2 adjacent left inguinal lymph nodes and within the posterior right neck lymph node are increased in SUV over the interval could be progression of metastasis.
== END | disposition home or self-care (01) ==
LOC: RADPETMAIN 11:04
PROVIDERS: ATTEND Internal Medicine Hematology & Oncology
DX: C76.0 Malignant neoplasm of head, face and neck (principal)
CPT/HCPCS: 78815; A9552

== ENCOUNTER → 2024-10-19 | Outpatient (CLI) | payer MEDICARE ==
--- NOTE | 2024-10-20 08:58 | PE ---
EXAMINATION TYPE: PET CT fusion skull to thigh DATE OF EXAM: 10/19/2024 CLINICAL HISTORY: Head and neck cancer. Completed chemotherapy and immunotherapy 2022. Originally sabiha gnosed in early 2019. TECHNIQUE: Following the intravenous administration of 12.59 mCi of F-18 FDG, whole body images are performed from the skull base to the midthigh. Images are reviewed on the computer in the coronal, axial, and sagittal planes. Reconstructed rotating images are created on independent workstation and reviewed on the computer. A non-contrast CT is performed in conjunction with the PET scan. [facility] ed PET/CT images of the head and neck are acquired. Blood glucose level equals 109. COMPARISON: Prior PET/CT November 18, 2023 and older studies. FINDINGS: HEAD AND NECK: No new areas of suspicious hypermetabolic uptake. Extensive Postsurgical changes to t he anterior neck bilaterally are redemonstrated. Stable prominent but subcentimeter posterior right c ervical lymph node with mild hypermetabolic uptake, max SUV is 4.09 versus 4.04 on prior. This is lik hyun nonneoplastic. CHEST, MEDIASTINUM, AND HILAR REGION: No new area of abnormal hypermetabolic uptake. ABDOMEN AND PELVIS: No new areas of abnormal hypermetabolic uptake. OSSEOUS STRUCTURES: No new areas of abnormal hypermetabolic uptake. OTHER CT: Stable right internal jugular Mediport catheter. Underlying emphysematous change in the dl gs is redemonstrated. Moderate Coronary artery calcification are again seen. Multiple thin-walled cysts of varying size and shape are redemonstrated scattered throughout the bila teral kidneys. Distal colonic diverticulosis is redemonstrated. Enlarged prostate again seen. IMPRESSION: No new areas of abnormal increased radiotracer uptake to suggest active neoplastic recurr ence. [facility], , 10/20/2024 8:55 AM
== END | disposition home or self-care (01) ==
LOC: RADPETMAIN 15:05
PROVIDERS: ATTEND Internal Medicine Hematology & Oncology
DX: C76.0 Malignant neoplasm of head, face and neck (principal)
CPT/HCPCS: 78815; A9552